=== PATIENT | male | born 1940 | race Caucasian/White ===

== ENCOUNTER 2018-07-19 08:19 | Observation (INO) | payer OTHER, MEDICARE ==
[~2018-07-19] VITALS: Ht 175.3 cm; Wt 96.7 kg
[~2018-07-19 08:19] MED LIST: APRESOLINE100 MG PO; ASPIR-LOW81 MG PO; Aspirin E.C. PO; BRILINTA90 MG PO; CILOSTAZOL100 MG PO; Cozaar PO; DIOVAN320 MG PO; GLUCOVANCE 51 TABLET PO; Glucovance 5/500 PO; HYDROCHLOROTHIA25 MG PO; LIPITOR10 MG PO; LIPITOR40 MG PO; LOSARTAN POTAS100 MG PO; LOSARTAN POTASS50 MG PO; Lipitor PO; Lopressor PO; MEDROL32 MG PO; METFORMIN HCL500 MG PO; METOPROLOL TAR100 MG PO; NITROGLYCERIN0.4 MG SL; NORVASC10 MG PO; Nitrostat,NitroQuick SL; Norvasc PO; PLAVIX75 MG PO; PROTONIX40 MG PO; Protonix PO
[2018-07-19 09:00] LABS: HEMATOCRIT 31.2 % (38.0-50.0); HEMOGLOBIN 9.9 G/DL (12.5-16.6); MCH 25.9 PG (29.0-34.0); MCHC 31.7 G/DL (30.0-36.0); MCV 81.7 FL (86-99); PLATELET COUNT 213 K/uL (156-360); RBC DIS.WIDTH-CV 14.9 % (11.8-14.6); RBC DIS.WIDTH-SD 43.8 % (39-53); RED BLOOD COUNT 3.82 M/uL (4.00-5.50); WHITE BLOOD COUNT 11.1 K/uL (4.1-10.2)
[2018-07-19 09:05] LABS: INTER. NORMALIZED RATIO 1.1
[2018-07-19 09:08] LABS: PTT 28.8 SEC (25-37)
[2018-07-19 09:10] LABS: ALBUMIN 3.7 g/dL (3.2-4.8); CHLORIDE 106 mEq/L (99-109); POTASSIUM 4.1 mEq/L (3.7-5.4); SODIUM 136 mEq/L (136-147)
[2018-07-19 09:12] LABS: GLUCOSE 274 mg/dL (70-99); TOTAL PROTEIN 6.8 g/dL (6.4-8.3)
[2018-07-19 09:14] LABS: TOTAL BILIRUBIN 0.4 mg/dL (0.0-1.0)
[2018-07-19 09:16] LABS: CREATININE 1.3 mg/dL (0.6-1.3); GFR ESTIMATE (CALCULATED) 57 mL/min/ (58.99-99999)
[2018-07-19 09:17] LABS: AST (GOT) 14 IU/L (2-34); UREA NITROGEN (BUN) 25 mg/dL (9-23)
[2018-07-19 09:19] LABS: ALT (GPT) 12 IU/L (3-49)
[2018-07-19 09:21] LABS: TROP-I INTERPRETATION NEGATIVE; TROPONIN-I 0.06 ng/mL (0.0-0.30)
[2018-07-19 09:39] LABS: ALKALINE PHOSPHATASE 77 IU/L (3-129)
[2018-07-19] MEDS ORDERED: LOPRESSOR50 MG PO (10:30)
[2018-07-19] MEDS ORDERED: IRBESARTAN300 MG PO (10:31)
[2018-07-19 12:11] VITALS: BP 170/74
[2018-07-19 15:31] LABS: TROP-I INTERPRETATION NEGATIVE; TROPONIN-I 0.13 ng/mL (0.0-0.30)
[2018-07-19 16:00] VITALS: BP 166/91
[2018-07-19 20:18] VITALS: BP 176/78
[2018-07-19 21:31] LABS: TROP-I INTERPRETATION NEGATIVE; TROPONIN-I 0.12 ng/mL (0.0-0.30)
[2018-07-19 23:35] VITALS: BP 123/60
[2018-07-20 01:07] LABS: TROP-I INTERPRETATION NEGATIVE; TROPONIN-I 0.11 ng/mL (0.0-0.30)
[2018-07-20 03:58] VITALS: BP 149/68
[2018-07-20 07:50] VITALS: BP 151/79
[2018-07-20 11:54] VITALS: BP 163/78
[2018-07-20] MEDS ORDERED: IRBESARTAN300 MG PO (12:19)
[2018-07-20] MEDS ORDERED: NITROGLYCERIN0.4 MG SL (12:19)
== END 2018-07-20 13:56 | disposition home or self-care (01) ==
LOC: EME 08:19 → ENRESERV 10:35 → EDOF 10:35 → 4SOUTH 11:45
PROVIDERS: Hospitalist; Nurse Practitioner Family
DX: R07.89 Other chest pain (principal); I25.119 Atherosclerotic heart disease of native coronary artery with unspecified angina pectoris; I10 Essential (primary) hypertension; E11.51 Type 2 diabetes mellitus with diabetic peripheral angiopathy without gangrene; M25.569 Pain in unspecified knee; R94.31 Abnormal electrocardiogram [ECG] [EKG]; I65.23 Occlusion and stenosis of bilateral carotid arteries; E78.5 Hyperlipidemia, unspecified; D46.9 Myelodysplastic syndrome, unspecified; Z95.5 Presence of coronary angioplasty implant and graft; E66.3 Overweight; Z87.891 Personal history of nicotine dependence; Z95.820 Peripheral vascular angioplasty status with implants and grafts; Z91.048 Other nonmedicinal substance allergy status; Z91.041 Radiographic dye allergy status; Z79.84 Long term (current) use of oral hypoglycemic drugs; Z79.82 Long term (current) use of aspirin
CPT/HCPCS: 71046; 78582; 80053; 82948; 83036; 84484; 85027; 85379; 85610; 85730; 93005; 99281; 99285; A9540; A9567; G0378; J1650; J7030